=== PATIENT | female | born 1980 | race Caucasian/White ===

== ENCOUNTER 2023-06-21 13:34 | Outpatient (CLI) | payer OTHER, SELFPAY ==
[2023-06-21 15:04] LABS: Hematocrit 34.8 % (37.0-47.0); Hemoglobin 11.1 g/dL (12.0-15.0); Mean Corpuscular HGB Conc 31.9 g/dl (32-36); Mean Corpuscular Hemoglobin 31.9 pg (26-34); Mean Platelet Volume 10.6 fl (7.4-10.4); Platelet Count Result 279 k/mm3 (150-375); Red Blood Count 3.48 M/mm3 (4.2-5.4); Red Cell Distribution Width 12.1 % (11.5-14.5); White Blood Count 6.9 K/mm3 (4.5-10.0)
[2023-06-21 15:56] LABS: Anion Gap 4 mmol/L (8-16); Blood Urea Nitrogen 17 mg/dL (7-17); Calcium 8.9 mg/dL (8.4-10.2); Carbon Dioxide 27 mmol/L (22-30); Chloride 107 mmol/L (98-107); Estimated Glomerular Filt Rate > 60; Glucose 93 mg/dL (65-110); Sodium 138 mmol/L (137-145)
[2023-06-21 15:58] LABS: Iron 101 ug/dL (37-170)
[2023-06-21 16:04] LABS: Prealbumin 23.1 mg/dL (17.6-36.0)
[2023-06-26 14:20] LABS: Vitamin B1 22 nmol/L (8-30)
== END 2023-06-21 13:35 | disposition home or self-care (01) ==
LOC: ANHLAB 13:38
PROVIDERS: Visit Provider Surgery Plastic and Reconstructive Surgery
DX: R63.4 Abnormal weight loss (principal)
CPT/HCPCS: 36415; 80048; 82040; 83540; 84134; 84425; 85027

== ENCOUNTER 2023-07-26 00:22 | Day surgery (SDC) | payer OTHER, SELFPAY ==
[2023-07-15 11:53] VITALS: BMI 23.0
--- NOTE | 2023-07-15 12:06 | PC.NURSE ---
Report to the Outpatient Waiting Room, entrance under the green pavilion located off [facility], at time 1230 on date 07/26/23. Planned Procedure Time: 1430. Time changes happen often and if your time is changed the preop area will call you the afternoon before. - You and your visitor will be asked to self-screen and do not enter if you have any COVID symptoms. - A mask is optional within the hospital at this time. Patients may have clear liquids (water, carbonated beverages, clear teas, apple juice) until 3 hours prior to surgery with a maximum of 20 ounces. - No food from midnight until time of surgery Take the following medications with a SIP of water the morning of surgery: BUPROPION, BUSPIRONE, METOPROLOL, VENLAFAXINE, VALTREX IF NEEDED DO NOT STOP ANY OF YOUR OTHER PRESCRIPTION MEDICATIONS PRIOR TO SURGERY ?EXCEPT THE FOLLOWING Medications to discontinue per physician: VITAMINS/SUPPLEMENTS Date to take last dose: 07/22/23 Please no make-up, nail sami, hairspray, perfume, deodorant, or body powder the day of surgery. No jewelry (including any body piercings) or valuables the day of surgery, leave them at home. Please take a shower or bath the night before, or the morning of, surgery with an antibacterial soap. Wear comfortable, loose fitting clothing. - Jewelry must be removed prior to entering the operating room. Rings and piercings that are not removed may be cut off. - The hospital will not accept responsibility for valuables. - Please leave all valuables, including medications, at home the day of surgery. If you are going home after surgery, a licensed tow motor driver must drive you home. - NO public transportation without another adult if you receive anesthesia. - We recommend that an adult stay with you for 24 hours following discharge. - We also recommend that you do not drive, make important decision, drink alcoholic beverages, or take any drugs that were not prescribed by your health care provider for at least 24 hours after your discharge time. Follow any additional instructions given to you from your surgeon. If you or anyone in your household have experienced Covid symptoms in the past week, please notify your surgeon or the nurse liaison at the phone number below for possible testing. Telephone instructions given to PT - BRET and asked if any additional questions and then verbalized understanding. Patient advised to call surgeon office or pre surgery nurse liaison [phone] if any additional questions.
[2023-07-26] VITALS (7 sets, daily range): BP systolic 93–126; BP diastolic 63–74; PULSE 60–71; RESP 8–16; TEMP 36.2–37.5; O2SAT 97–100; BMI 23.4
--- NOTE | 2023-07-26 12:54 | ECG_ITS ---
SEE SCANNED COPY FOR CONFIRMED REPORT MTDD
[2023-07-26] MEDS: LACTATED RINGERS 1,000 ML 30 ML IV CONT ×2 (13:00→16:00)
--- NOTE | 2023-07-26 14:21 | WPDANESEPPF ---
Anes - Initial Pre Proc Eval Procedure: Operation Date: 07/26/23 14:30 Proposed Procedures p Bilateral Breast Augmentation - Mikel Copeland MD Date/Time: 07/26/23 14:21 Surgeon: Mikel Copeland MD Pre Op Diagnosis: Micromastia Patient Data Age: 43 Gender: F Height: 1.6 m Weight: 60 kg Last Vital Signs Temp 99.5 F 07/26/23 13:47 Pulse 60 07/26/23 13:47 Resp 16 07/26/23 13:47 BP 103/63 07/26/23 13:47 Pulse Ox 100 07/26/23 13:47 O2 Del Method Room Air 07/26/23 13:47 Allergies Allergy/AdvReac Type Severity Reaction Status Date / Time No Known Allergies Allergy Verified 07/26/23 13:57 Home Medications Medication Instructions Recorded Confirmed Type bupropion HCl 300 mg 24 hr tablet, 300 mg PO BID 07/15/23 07/26/23 History extended release buspirone 5 mg tablet 5 mg PO BID 07/15/23 07/26/23 History metformin 500 mg tablet 500 mg PO DAILY 07/15/23 07/15/23 History metoprolol tartrate 50 mg tablet 50 mg PO DAILY 07/15/23 07/26/23 History multivitamin 1 tablet PO DAILY 07/15/23 07/15/23 History pyridoxine (vitamin B6) 100 mg 100 mg PO DAILY 07/15/23 07/15/23 History tablet valacyclovir 500 mg tablet 500 mg PO DAILY PRN Cold Sores 07/15/23 07/15/23 History (Valtrex) venlafaxine 150 mg 150 mg PO DAILY 07/15/23 07/26/23 History capsule,extended release 24 hr Patient hx anesthesia problems: none Family hx anesthesia problems: none Results Review: All pre-operative results and documents have been reviewed as part of the pre-operative evaluation. [facility] Social History Social History Smoking packs per day: 0.75 Smoking cigarettes per day: 15.0 Years smoked: 12 Smoking pack-years: 9.00 Smoking status: Former smoker Tobacco type: cigarettes Smoking end date: 04/08/10 Alcohol intake: current Drinks per week: 6 Substance use: current Substance use type: marijuana Other substance usage details: EDIBLE Living arrangements: with family Spiritual care concerns: No Anes - Eval Final PreProcedure Day of Procedure 07/26/23 14:21 Patient weight: normal Heart: regular rate and rhythm Lungs: clear to auscultation Airway: Mallampati scale class II Neurological: alert and oriented Last oral intake: >/= 8 hours ASA classification: II Emergent: no Anesthetic plan: proceed Anesthesia type and monitoring: general LMA and standard monitoring Results Review: All pre-operative results and documents have been reviewed as part of the pre-operative evaluation. Informed Consent: The patient's anesthetic plan and its attendant risks and benefits were discussed with the patient/family/POA. Questions were solicited and answers provided to the satisfaction of the patient/family/POA.
--- NOTE | 2023-07-26 14:25 | WPDHPUPDATE1 ---
History and Physical Update Update Date/Time: 07/26/23 14:25 History and Physical has been reviewed, including an updated exam of the patient. There are NO changes in the patient's condition. Risks, benefits, and alternatives have been discussed and questions answered. Patient agrees to proceed with procedure.
--- NOTE | 2023-07-26 14:25 | W.PM.PROC2 ---
Procedure Note - Detailed Date of Procedure 07/26/23 Pre-op Diagnosis Micromastia Post-op Diagnosis Same Procedure Performed Bilateral Augmentation Mammaplasty Surgeon Mikel Copeland MD Anesthesia General Findings Bilateral Derick Francis SoftTouch implants 485cc Right - REF# [id number] SN [id number] Left - REF# [id number] SN [id number] Description of Procedure She is here today for bilateral breast augmentation. Previously and again today the risks, benefits, alternatives were discussed in extensive detail. I wanted her to be very realistic about the risks involved as well as expectations. We discussed aftercare and what to monitor for. Made sure answered all of her questions to her satisfaction today and consent was obtained. Marked in the preoperative holding area with their verification. The patient was taken to the operating room placed supine on the operating table. Anesthesia was provided by anesthesiology. A surgical time-out was taken. We cleansed the skin and 1% lidocaine and 0.25% Marcaine with epinephrine was used anesthetize as a field block. She was prepped and draped in a standard sterile fashion. Tegaderm nipple Tolentino were placed. A 15 blade used to make an incision along the inframammary fold. Dissection was continued at 45 degree angle until the chest wall as identified. I incised the pectoralis major along its inferior border and completely released the inferior border leaving the medial border intact. I created a subpectoral pocket in the appropriate dimensions based on our preoperative planning for the implant. I then copiously irrigated with saline solution and verified a strict hemostasis. Next the use a triple antibiotic and Betadine containing solution to irrigate the pocket. I washed my gloves with the triple antibiotic and Betadine solution. We washed the implant immediately upon opening it with this solution and only opened it when we needed it. I used implant funnel and no-touch technique. The implant was introduced into the pocket using the funnel. Having verified positioning of the implant this was closed using 2-0 PDS followed by 3-0 Monocryl in a running subcuticular 4-0 Monocryl followed by tissue glue. Fluffs and surgical bra were placed. Patient was awoke and taken to PACU without difficulty. All instrument sponge counts were correct at the end of the case. Estimated Blood Loss 20 Drains No Packing No Pathology None sent Complications No immediate complications Condition Stable Disposition PACU
--- NOTE | 2023-07-26 14:39 | PM.IMHP ---
H&P: HPI History of Present Illness Date/Time: 07/26/23 14:39 Chief Complaint: She is here with desire for breast augmentation. Review of Systems Review of Systems: All systems reviewed & are unremarkable except as noted in HPI and below PMFSH Social History Social History Smoking packs per day: 0.75 Smoking cigarettes per day: 15.0 Years smoked: 12 Smoking pack-years: 9.00 Smoking status: Former smoker Tobacco type: cigarettes Smoking end date: 04/08/10 Alcohol intake: current Drinks per week: 6 Substance use: current Substance use type: marijuana Other substance usage details: EDIBLE Living arrangements: with family Spiritual care concerns: No Meds Home Medications and Allergies Home Medications Medication Instructions Recorded Confirmed Type bupropion HCl 300 mg 24 hr tablet, 300 mg PO BID 07/15/23 07/26/23 History extended release buspirone 5 mg tablet 5 mg PO BID 07/15/23 07/26/23 History metformin 500 mg tablet 500 mg PO DAILY 07/15/23 07/15/23 History metoprolol tartrate 50 mg tablet 50 mg PO DAILY 07/15/23 07/26/23 History multivitamin 1 tablet PO DAILY 07/15/23 07/15/23 History pyridoxine (vitamin B6) 100 mg 100 mg PO DAILY 07/15/23 07/15/23 History tablet valacyclovir 500 mg tablet 500 mg PO DAILY PRN Cold Sores 07/15/23 07/15/23 History (Valtrex) venlafaxine 150 mg 150 mg PO DAILY 07/15/23 07/26/23 History capsule,extended release 24 hr Allergies Allergy/AdvReac Type Severity Reaction Status Date / Time No Known Allergies Allergy Verified 07/26/23 13:57 Vital Signs Vital Signs - 24 hr 07/26/23 13:47 Temperature 37.5 C Pulse Rate 60 Respiratory Rate 16 Blood Pressure 103/63 Pulse Oximetry 100 Oxygen Delivery Room Air Exam Narrative: Alert & Oriented NOD Respiratory unlabored Assessment and Plan Assessment and plan (1) Encounter for cosmetic procedure: Code(s): Z41.1 - Encounter for cosmetic surgery Status: Acute Assessment and Plan: She would like to proceed with bilateral augmentation mammaplasty Risks, benefits, alternatives were discussed in extensive detail. I want to be very realistic about the risks involved as well as expectations. Reviewed consent in detail. Discussed aftercare and what to monitor for. Made sure I answered all questions answered to satisfaction and consent obtained. (2) Irregular heart beat: Code(s): I49.9 - Cardiac arrhythmia, unspecified Status: Acute
[2023-07-26] MEDS: NACL 0.9% IRRIG POUR BOTTLE 900 ML, GENTAMICIN SULFATE INJ 160 MG, ceFAZolin 2 GM, POVI... IRRIGATION (15:00)
[2023-07-26] MEDS: BUPivacaine HCL 0.25% PF 30 ML VIAL INFILTRATE (15:00)
[2023-07-26] MEDS: LIDO 1%/EPINEPHRINE 1:100,000 50 ML VIAL 30 ML INFILTRATE (15:00)
[2023-07-26] MEDS: ceFAZolin 2 GM/D5W 50 ML 2 GM/50 ML BAG IVPB (15:00)
[2023-07-26] MEDS: TRANEXAMIC ACID 1,000MG/ISO100 1,000 MG/100 ML BAG 200 MG IVPB (15:10)
[2023-07-26] MEDS: oxyCODONE HCL (*CRX) 5 MG TAB IR PO (17:09)
== END 2023-07-26 17:34 | disposition home or self-care (01) ==
PROVIDERS: Visit Provider Surgery Plastic and Reconstructive Surgery
PROC: (CPT 19325; principal; 2023-07-26 14:30)
DX: Z41.1 Encounter for cosmetic surgery (principal); N64.82 Hypoplasia of breast; I49.9 Cardiac arrhythmia, unspecified; F12.90 Cannabis use, unspecified, uncomplicated; Z87.891 Personal history of nicotine dependence; Z79.84 Long term (current) use of oral hypoglycemic drugs
CPT/HCPCS: 19325; 93005; A9270; J0690; J1100; J1170; J1580; J2250; J2405; J2704; J3010; J7120